=== PATIENT | female | born 2000 | race Caucasian/White ===

== ENCOUNTER 2020-12-19 02:17 | Emergency (ER) | payer OTHER ==
[~2020-12-19] VITALS: Ht 157.5 cm; Wt 85.5 kg
[2020-12-19 02:22] VITALS: TEMP 98.2
[2020-12-19 04:27] VITALS: BP 136/87; PULSE 88
== END 2020-12-19 04:27 | disposition home or self-care (01) ==
LOC: COL.ER 02:17
DX: R42 Dizziness and giddiness (principal); E16.2 Hypoglycemia, unspecified; Z20.822 Contact with and (suspected) exposure to COVID-19